=== PATIENT | female | born 1980 | race Caucasian/White ===

== ENCOUNTER → 2016-04-03 | Outpatient (CLI) | payer BC ==
[~2016-04-03] MED LIST: IBP600T1 PO; PREN1TAB39 PO
--- OUTSIDE RECORDS SUMMARY | 2016-04-03 10:19 | XMS REPORT | Continuity of Care Document ---
Author Author [facility] Address Unknown Phone Unavailable Allergies Active Description Code Type Severity Reaction Onset Reported/Identified Relationship to Patient Clinical Status Yes Ceftin Drug Allergy 03/05/2012 Yes Ceftin Drug Allergy N/A N/A 03/05/2012 Medications Problems Date Dx Coded Attending Type Code Diagnosis Diagnosed By 03/05/2012 DAPHNIE RUIZ APRN A 461.9 SINUSITIS ACUTE 03/05/2012 SHERRY RUIZ APRNYL A 784.0 HEADACHE 03/05/2012 SHERRY RUIZ APRNYL A 461.9 SINUSITIS ACUTE 03/05/2012 SHERRY RUIZ APRNYL A 784.0 HEADACHE 01/07/2013 SHERRY RUIZ APRNYL A 381.81 EUSTACHIAN TUBE DYSFUNCTION 01/07/2013 SARA BASSETT DAPHNIE A 461.0 SINUSITIS, ACUTE MAXILLARY Procedures Results Encounters ACCT No. Visit Date/Time Discharge Status Pt. Type Provider Facility Loc./Unit Complaint [id number] 01/07/2013 11:19:00 01/07/2013 23: 59:59 CLS Outpatient DAPHNIE RUIZ APRN [id number] 03/05/2012 14:43:08 03/05/2012 23: 59:59 CLS Outpatient DAPHNIE RUIZ APRN
--- NOTE | 2016-04-03 14:39 | Diagnostic Imaging Report ---
INDICATION: Dysfunctional uterine bleeding. TECHNIQUE: Multiple real-time grayscale images were obtained over the pelvis in various projections both transabdominally and endovaginally. FINDINGS: The uterus measures 8.5 x 5.4 x 4.7 cm. Endometrial thickness is 0.5 cm. There are no discrete myometrial or endometrial masses. Both ovaries are normal in size and morphology and demonstrate normal blood flow. There are no adnexal masses. There is no free pelvic fluid. IMPRESSION: Unremarkable pelvic ultrasound. Dictated by: Dictated on workstation # [id number]
== END ==
LOC: RAD 10:16
PROVIDERS: ATTEND Nurse Practitioner
DX: N93.8 Other specified abnormal uterine and vaginal bleeding (principal)
CPT/HCPCS: 76830; 76856

== ENCOUNTER 2018-04-15 19:17 | Emergency (ER) | payer BC ==
[~2018-04-15] VITALS: Ht 162.6 cm; Wt 77.1 kg
--- OUTSIDE RECORDS SUMMARY | 2018-04-15 19:23 | XMS REPORT | Continuity of Care Document ---
Author Author [facility] Address Unknown Phone Unavailable Allergies Active Description Code Type Severity Reaction Onset Reported/Identified Relationship to Patient Clinical Status Yes Ceftin Drug Allergy 03/05/2012 Yes Ceftin Drug Allergy N/A N/A 03/05/2012 Medications There is no data. 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 Results There is no data. Encounters ACCT No. Visit Date/Time Discharge Status Pt. Type Provider Facility Loc./Unit Complaint [id number] 01/07/2013 11:19:00 01/07/2013 23:59:59 CLS Outpatient DAPHNIE RUIZ APRN [id number] 03/05/2012 14:43:08 03/05/2012 23:59:59 CLS Outpatient DAPHNIE RUIZ APRN
--- NOTE | 2018-04-15 19:47 | ED Upper Extremity ---
General Chief Complaint: Upper Extremity Stated Complaint: CUT LEFT INDEX FINGER Source: patient Exam Limitations: no limitations History of Present Illness Date Seen by Provider: Apr 15, 2018 Time Seen by Provider: 19:30 Initial Comments 37-year-old female who presents to the emergency room with complaints of lacerations to her left index finger. She reports that she was cleaning a emulsion gas blender when she accidentally turned on. She has 3 superficial lacerations to the distal tip of her left index finger 0.5 cm in length. Her nail is intact. See images for location. 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 Onset: just prior to arrival Pain/Injury Location: left 2nd finger Allergies and Home Medications Allergies Coded Allergies: cefuroxime axetil (Verified Allergy, Unknown, Hives, 07/12/11) Home Medications Ibuprofen 600 Mg Tablet, 1 EACH PO Q6H PRN, (Reported) NEEDED FOR CRAMPING/PAIN Vits W-Ca,Fe,Fa(<1MG) 1 Each Tablet, 1 EACH PO DAILY, (Reported) Patient Home Medication List Home Medication List Reviewed: Yes Review of Systems Constitutional: no symptoms reported, see HPI Skin: see HPI, other (Laceration left index) All Other Systems Reviewed Negative Unless Noted: Yes Past Jlqpmlw-Natsxv-Llmcjd Hx Past Med/Social Hx: Reviewed Nursing Past Med/Soc Hx Patient Social History Recent Foreign Travel: No Contact w/Someone Who Travel: No Recent Hopitalizations: Yes (Tubal 2005, childbirth 2004) Past Medical History Surgeries: No (ectopic ) Respiratory: No Cardiac: Yes Neurological: Yes Reproductive Disorders: No Gastrointestinal: No Musculoskeletal: No Endocrine: No Psychosocial: Yes Blood Disorders: No Family Medical History Reviewed Nursing Family Hx Physical Exam Vital Signs Vital Signs - First Documented 04/15/18 19:27 Temp 98.2 Pulse 70 Resp 20 B/P (MAP) 130/84 (99) Pulse Ox 100 O2 Delivery Room Air Capillary Refill : Height, Weight, BMI Height: '" Weight: lbs. oz. kg; BMI Method: General Appearance: WD/WN, no apparent distress Cardiovascular: normal peripheral pulses, regular rate, rhythm, no edema, no gallop, no JVD, no murmur Respiratory: chest non-tender, lungs clear, normal breath sounds, no respiratory distress, no accessory muscle use Hand: Left (Second finger laceration to the distal tip. See images) Neurologic/Tendon: normal sensation, normal motor functions, normal tendon functions, no evidence tendon injury Neurologic/Psychiatric: alert, normal mood/affect, oriented x 3 Skin: normal color, warm/dry Procedures/Interventions Wound Location: Upper Extremities Other Wound Location Left second finger distal tip Wound Length (cm): 0.5 Wound's Depth, Shape: superficial Irrigated w/ Saline (ccs): 200 Betadine Prep?: Yes (Betasept) Other Closure Supply: Wound Adhesive Progress The wound was cleaned and irrigated with normal saline and Betasept. Finger tourniquet was applied to control bleeding and the wound was approximated and closed with wound adhesive. Finger tourniquet was removed. Patient tolerated procedure well. Departure Impression Primary Impression: Laceration Disposition: 01 HOME, SELF-CARE Condition: Stable/Unchanged Departure-Patient Inst. Decision time for Depature: 19:46 Referrals: CATHLEEN SEXTON MD (PCP/Family) Primary Care Physician Patient Instructions: Laceration Repair With Glue (DC) Add. Discharge Instructions: Let the glue fall off on its own. Avoid using soaps, lotions, ointments directly to the glue as this will cause it to detach too soon. Watch for signs of infection such as increased redness, swelling, drainage, pain. May use ibuprofen and Tylenol as directed by the bottle for pain relief. Follow-up with your primary care provider as needed. Return back to the emergency room for worsening symptoms or concerns as needed. All discharge instructions reviewed with patient and/or family. Voiced understanding. Images Extremities-Upper 1 - Laceration 2 - Laceration 3 - Laceration DELMY SOUTH Apr 15, 2018 19:47
[2018-04-15 20:10] VITALS: BP 130/93
== END 2018-04-15 20:12 | disposition home or self-care (01) ==
LOC: EDUNIT# 19:17 → ER 19:19
DX: S61.211A Laceration without foreign body of left index finger without damage to nail, initial encounter (principal); Z88.8 Allergy status to other drugs, medicaments and biological substances; W26.8XXA Contact with other sharp object(s), not elsewhere classified, initial encounter

== ENCOUNTER → 2021-07-15 | Outpatient (CLI) | payer BC | LOC: CARD 09:30 | PROVIDERS: ATTEND Internal Medicine Cardiovascular Disease | DX: I35.8 Other nonrheumatic aortic valve disorders (principal) | CPT/HCPCS: 93306 ==

== ENCOUNTER → 2021-08-17 | Outpatient (CLI) | payer BC ==
--- NOTE | 2021-08-17 13:25 | Diagnostic Imaging Report ---
INDICATION: Routine screening. COMPARISON: No prior mammograms are available for comparison. This is a baseline study. TECHNIQUE: 2D and 3D bilateral screening mammography was performed with CAD. FINDINGS: Both breasts are heterogeneously dense, limiting the sensitivity of mammography. There is a circumscribed nodule in the upper outer right breast at posterior depth. This is approximately 10 cm from the nipple. No other masses are identified. No malignant-appearing microcalcifications are seen. The axillae are unremarkable. IMPRESSION: Circumscribed nodule in the upper outer right breast at posterior depth. Further evaluation with ultrasound is recommended. ACR BI-RADS Category 0: Incomplete. (Needs additional imaging evaluation). Result letter will be mailed to the patient. Note: At least 10% of breast cancer is not imaged by mammography. Dictated by: Dictated on workstation # [id number]
== END ==
LOC: RAD 11:30
PROVIDERS: ATTEND Surgery
DX: Z12.31 Encounter for screening mammogram for malignant neoplasm of breast (principal); N63.11 Unspecified lump in the right breast, upper outer quadrant
CPT/HCPCS: 77063; 77067

== ENCOUNTER → 2021-08-25 | Outpatient (CLI) | payer BC ==
--- NOTE | 2021-08-25 13:48 | Diagnostic Imaging Report ---
INDICATION: Right breast density. CORRELATION is made with the screening mammogram from 08/17/2021. Sonographic interrogation of the outer right breast was performed. There is a circumscribed but macrolobulated solid nodule at the 9:00 location of the right breast 8 to 9 cm from the nipple measuring 8 mm x 3 mm x 5 mm. This likely accounts for the mammographic density. Imaging appearance is most consistent with a fibroadenoma. There appears to be a slightly prominent duct at the 10:00 location 8 to 9 cm from the nipple. No other masses are seen. IMPRESSION: BI-RADS Category 2 Benign-appearing nodule at the 9:00 location, right breast, 8 to 9 cm from the nipple, corresponding with the mammographic density. 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 Patient may return to routine annual screening mammography. ACR BI-RADS Category 2: Benign findings. Result letter will be mailed to the patient. Note: At least 10% of breast cancer is not imaged by mammography. Dictated by: Dictated on workstation # [id number]
== END ==
LOC: RAD 12:45
PROVIDERS: ATTEND Surgery
DX: N63.10 Unspecified lump in the right breast, unspecified quadrant (principal)

== ENCOUNTER → 2022-09-12 | Outpatient (CLI) | payer BC ==
--- NOTE | 2022-09-12 15:46 | Diagnostic Imaging Report ---
INDICATION: Routine screening. COMPARISON: 08/17/2021. TECHNIQUE: 2D and 3D bilateral screening mammography was performed with CAD. FINDINGS: Both breasts are heterogeneously dense, limiting the sensitivity of mammography. The parenchymal pattern is stable. No mass or malignant-appearing microcalcifications are seen. The axillae are unremarkable. IMPRESSION: No mammographic features suspicious for malignancy are identified. ACR BI-RADS Category 1: Negative. Result letter will be mailed to the patient. Note: At least 10% of breast cancer is not imaged by mammography. Dictated by: Dictated on workstation # [id number]
== END ==
LOC: RAD 12:33
PROVIDERS: ATTEND Nurse Practitioner
DX: Z12.31 Encounter for screening mammogram for malignant neoplasm of breast (principal)
CPT/HCPCS: 77063; 77067

== ENCOUNTER 2022-10-28 23:17 | Inpatient (IN) | payer BC ==
[~2022-10-28] VITALS: Ht 162.6 cm; Wt 71.7 kg
[2022-10-29] VITALS (10 sets, daily range): BP systolic 108–131; BP diastolic 58–72
[2022-10-29] MEDS ORDERED: morphine INJ 4 MG/ML 1 ML (VIAL/SYRINGE) IVP PRN (00:45)
[2022-10-29] MEDS ORDERED: ONDANSETRON INJECTION 4 MG/2 ML (SDV) IVP PRN ×2 (00:45→15:00)
[2022-10-29] MEDS ORDERED: LACTATED RINGERS 1,000 ML 1,000 ML IV ONE (00:46)
[2022-10-29] MEDS: LACTATED RINGERS 1,000 ML 1,000 ML IV SCH ×3 (00:48→14:33)
[2022-10-29] MEDS ORDERED: PARO10TA3 PO (00:53)
[2022-10-29] MEDS ORDERED: PANTOPRAZOLE INJECTION 40 MG VIAL IV SCH (01:00)
--- NOTE | 2022-10-29 10:36 | Consultation - Surgery ---
MACY RODRIGUEZ 10/29/22 1036: History of Present Illness History of Present Illness Patient Consulted On(tony/time) 10/29/22 10:31 Date Seen by Provider: Oct 29, 2022 Time Seen by Provider: 10:31 History of Present Illness Pt says yesterday morning she got some intense pain that she thought was her bladder, and then it radiated to her back. She then went to the urgent care, said the pain subsided, then went home. Pt states then by the evening, she got some tight and crampy abd pain, had a fever of 99, same pain radiating in the lower back. Pt says pain was in her right lower abd but whole stomach is crampy, tight, and achy. Pt then had a CT last night at [facility] ER that showed 8.5 mm upper size of normal, mild mucosal enhancement, could be early appendicitis. Pt states the last time she ate or drank was 11:30 last night. Pt says right now the pain is a 5-6/10, uncomfortable, crampy, in RLQ, periumbilical, and in her back. Pt says pain worsens when she stands up. Pt says she has alpha-gal syndrome. Allergies and Home Medications Allergies Coded Allergies: cefuroxime axetil (Verified Allergy, Unknown, Hives, 07/12/11) Patient Home Medication List Paroxetine HCl (Paroxetine HCl) 10 Mg Tablet, 5 MG PO DAILY, (Reported) Entered as Reported by: THONY JOSEPH on 10/29/22 0053 Last Action: Reviewed Discontinued Medications Ibuprofen (Motrin Tablet) 600 Mg Tablet, 1 EACH PO Q6H PRN, (Reported) Discontinued Reason: No Longer Taking Entered as Reported by: SHEYLA BRUCE on 07/14/11 1028 Last Action: Discontinued Vits W-Ca,Fe,Fa(<1MG) () 1 Each Tablet, 1 EACH PO DAILY, (Reported) Discontinued Reason: No Longer Taking Entered as Reported by: HILL CALDERON on 07/12/11 1729 Last Action: Discontinued Past Jdjquqn-Qwwudg-Rrrygx Hx Patient Social History Smoking Status: Never a Smoker Recent Hopitalizations: Yes (Tubal 2005, childbirth 2004, childbirth 2011) Alcohol Use?: No Have you traveled recently?: No Surgeries History of Surgeries: No (just ectopic , and EGD July 24 of this year) Respiratory History of Respiratory Disorde: No Cardiovascular History of Cardiac Disorders: Yes (heart palpitations upon eating mammal (pt says she has alpha-gal syndrome)) Neurological History of Neurological Disord: Yes Neurological Disorders: Neuropathy (in feet and hands) Reproductive System Hx Reproductive Disorders: No Genitourinary History of Genitourinary Disor: Yes Genitourinary Disorders: Bladder Infection Gastrointestinal History of Gastrointestinal Di: No Musculoskeletal History of Musculoskeletal Dis: No Endocrine History of Endocrine Disorders: No HEENT History of HEENT Disorders: No Cancer History of Cancer: No Psychosocial History of Psychiatric Problem: Yes Behavioral Health Disorders: Anxiety (in the past) Integumentary History of Skin or Integumenta: No Blood Transfusions History of Blood Disorders: No Family Medical History Significant Family History: Heart Disease (grandparents, dad valve replacement and stents in carotid arteries), Cancer (grandpa, leukemia), Diabetes (mom T2DM, uncle) Review of Systems-General Constitutional: No chills; fever (mild fever last night, pt reports to be 99) EENTM: vision loss (worse in last few years); No blurred vision Respiratory: No cough, No short of breath Cardiovascular: No chest pain, No palpitations Gastrointestinal: RLQ, abdominal pain, nausea (yesterday but not today); No vomiting Genitourinary: No dysuria; frequency (increased, urinalysis at urgent care was clean according to pt); No hematuria Musculoskeletal: No muscle stiffness; muscle cramps (in abdomen) Skin: No change in color, No lesions Psychiatric/Neurological: Denies Anxiety, Denies Depressed Physical Exam-General Problems Physical Exam Vital Signs Vital Signs - First Documented 10/29/22 10/29/22 00:20 00:23 Temp 36.6 Pulse 81 Resp 20 B/P (MAP) 113/67 (82) Pulse Ox 100 O2 Delivery Room Air Capillary Refill : General Appearance: mild distress Neck: non-tender Respiratory: lungs clear, normal breath sounds, no respiratory distress, no accessory muscle use Cardiovascular: regular rate, rhythm, no JVD, no murmur Peripheral Pulses: 2+ Carotid (R), 2+ Carotid (L), 2+ Dorsalis Pedis (R), 2+ Left Dors-Pedis (L), 2+ Radial Pulses (R), 2+ Radial Pulses (L) Gastrointestinal: soft, no pulsatile mass; No distended, No guarding (voluntary or involuntary); tenderness (very tender in epigastric area and RLQ, mildly tender in LLQ, no tenderness in LUQ) Neurologic/Psychiatric: alert, oriented x 3 Skin: normal color, warm/dry Assessment/Plan Assessment/Plan Assessment/Plan Acute appendicitis - laparoscopic appendectomy Alpha-gal syndrome - continue dietary restrictions TIFFANY CLARKE DO 10/29/22 1255: History of Present Illness History of Present Illness Time Seen by Provider: 12:29 History of Present Illness Surgery asked to admit regarding acute appendicitis. Pt when seen this afternoon stated her pain is actually worse than yesterday. She denies nausea or vomiting today. Pain is radiating to back. Allergies and Home Medications Allergies Coded Allergies: cefuroxime axetil (Verified Allergy, Unknown, Hives, 07/12/11) Patient Home Medication List Home Medication List Reviewed: Yes Paroxetine HCl (Paroxetine HCl) 10 Mg Tablet, 5 MG PO DAILY, (Reported) Entered as Reported by: THONY JOSEPH on 10/29/22 0053 Last Action: Reviewed Discontinued Medications Ibuprofen (Motrin Tablet) 600 Mg Tablet, 1 EACH PO Q6H PRN, (Reported) Discontinued Reason: No Longer Taking Entered as Reported by: SHEYLA BRUCE on 07/14/11 1028 Last Action: Discontinued Vits W-Ca,Fe,Fa(<1MG) () 1 Each Tablet, 1 EACH PO DAILY, (Reported) Discontinued Reason: No Longer Taking Entered as Reported by: HILL CALDERON on 07/12/11 1729 Last Action: Discontinued Past Ponsfpu-Gioisz-Iwzuke Hx Patient Social History Smoking Status: Never a Smoker Recent Hopitalizations: Yes (Tubal 2005, childbirth 2004, childbirth 2011) Alcohol Use?: Yes Have you traveled recently?: No Surgeries History of Surgeries: No (just ectopic , and EGD July 24 of this year) Respiratory History of Respiratory Disorde: No Cardiovascular History of Cardiac Disorders: Yes (heart palpitations upon eating meat (pt says she has alpha-gal syndrome)) Neurological History of Neurological Disord: Yes Neurological Disorders: Neuropathy (in feet and hands) Genitourinary History of Genitourinary Disor: Yes Genitourinary Disorders: Bladder Infection Gastrointestinal History of Gastrointestinal Di: Yes (abdominal pain when she eats meat) Musculoskeletal History of Musculoskeletal Dis: No Endocrine History of Endocrine Disorders: No HEENT History of HEENT Disorders: No Cancer History of Cancer: No Psychosocial History of Psychiatric Problem: Yes Behavioral Health Disorders: Anxiety (in the past) Integumentary History of Skin or Integumenta: No Family Medical History Significant Family History: Heart Disease (grandparents, dad valve replacement and stents in carotid arteries), Cancer (grandpa, leukemia), Diabetes (mom T2DM, uncle) Review of Systems-General Constitutional: No chills; fever (mild fever last night, pt reports to be 99) EENTM: vision loss (worse in last few years); No blurred vision Respiratory: No cough, No short of breath Cardiovascular: No chest pain, No palpitations Gastrointestinal: RLQ, abdominal pain, nausea (yesterday but not today); No vomiting Genitourinary: No dysuria; frequency (increased, urinalysis at urgent care was clean according to pt); No hematuria Musculoskeletal: No muscle stiffness; muscle cramps (in abdomen) Skin: No change in color, No lesions Psychiatric/Neurological: Denies Anxiety, Denies Depressed Physical Exam-General Problems Physical Exam General Appearance: WD/WN, mild distress Eyes: Bilateral Eye PERRL, Bilateral Eye EOMI HEENT: pharynx normal; No scleral icterus (R), No scleral icterus (L) Neck: non-tender, supple Respiratory: lungs clear, normal breath sounds, no respiratory distress, no accessory muscle use Cardiovascular: regular rate, rhythm, no murmur Gastrointestinal: soft, no organomegaly, no pulsatile mass; No distended, No guarding (voluntary or involuntary); tenderness (very tender in epigastric area and RLQ, mildly tender in LLQ, no tenderness in LUQ) Back: no CVA tenderness, no vertebral tenderness Extremities: no pedal edema, no calf tenderness, normal capillary refill 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 All questions answered to her satisfaction. Will get consent, she is on IV fluids, pain meds and anti-emetics as needed. Plan to go to OR within the hour. I reviewed all notes, labs and went over films from [facility]. Supervisory-Addendum Brief Verification & Attestation Participated in pt care: history, MDM, physical Personally performed: exam, history, MDM, supervision of care Care discussed with: Medical Student Procedures: n/a Verification and Attestation of Medical Student E/M Service A medical student performed and documented this service. I then reviewed and verified all information documented by the medical student and made modifications to such information, when appropriate. I personally performed a physical exam, medical decision making and then discussed any differences between the notes and made revisions as necessary to create one note. Tiffany Clarke , 10/29/22 , 12:55 MACY RODRIGUEZ Oct 29, 2022 10:36 TIFFANY CLARKE DO Oct 29, 2022 12:55
[2022-10-29] MEDS ORDERED: KETOROLAC INJ 30 MG/ML VIAL IVP ONE (11:45)
[2022-10-29] MEDS ORDERED: LIDOCAINE/EPI 1%-1:200,000 (XYLOCAINE) 30 ML VIAL ONE (13:13)
[2022-10-29] MEDS ORDERED: MIDAZOLAM INJ 2 MG/2 ML VIAL ONE (13:24)
[2022-10-29] MEDS ORDERED: fentaNYL INJECTION 100 MCG/2 ML VIAL ONE (13:24)
[2022-10-29] MEDS ORDERED: LACTATED RINGERS 1,000 ML 1,000 ML IV PRN (13:30)
[2022-10-29] MEDS ORDERED: CLINDAMYCIN 600 MG/50 ML IVPB 50 ML IV ONE (13:47)
[2022-10-29] MEDS ORDERED: LIDOCAINE PF 2% 5 ML VIAL ONE (13:50)
[2022-10-29] MEDS ORDERED: ROCURONIUM 50 MG/5 ML VIAL IV ONE (13:50)
[2022-10-29] MEDS ORDERED: proPOfol INJECTION 200 MG/20 ML VIAL IV ONE (13:50)
[2022-10-29] MEDS ORDERED: dexAMETHasone INJ 10 MG/ML 1 ML VIAL ONE (13:50)
[2022-10-29] MEDS ORDERED: ONDANSETRON INJECTION 4 MG/2 ML (SDV) ONE (13:50)
[2022-10-29] MEDS ORDERED: KETOROLAC INJ 30 MG/ML VIAL ONE (14:10)
[2022-10-29] MEDS ORDERED: NEOSTIGMINE 1 MG/1ML 10 ML VIAL ONE (14:14)
[2022-10-29] MEDS ORDERED: GLYCOPYRROLATE INJ 0.2 MG/ML 2 ML VIAL ONE (14:14)
[2022-10-29] MEDS ORDERED: ACHD5005 PO (14:30)
--- NOTE | 2022-10-29 14:32 | Discharge Inst-Surgical ---
Discharge Inst-Surgical Depart Medication/Instructions New, Converted or Re-Newed RX: Transmitted to Pharmacy Patient Instructions Follow up Appt: Make appointment for 1 week. [phone] Instructions: No lifting greater than 20 pounds. No strenuous activity. May shower in 24 hours, no tub bath or soaking. Use incentive spirometer at home as directed. No Smoking Skin/Wound Care: May remove bandages in am. You need to leave the Dermabond on incision it will fall off on it's own. Symptoms to Report: Appetite Changes, Extremity Discoloration, Numbness/Tingling, Swelling Increased, Bleeding Excessive, Eyesight Changes, Pain Increased, Urine Color Change, Constipation(Persistent), Fever over 101 degree F, Pain/Pressure in chest, Urinating Difficulty, Cough Up/Vomit Blood, Heart Beat Irreg/Pounding, Pain/Pressure in jaw, Cramps in feet or legs, Lightheadedness, Pain/Pressure in shoulder, Diarrhea(Persistent), Memory Changes Suddenly, Questions/Concerns, Weight gain consecutive days, Dizziness/Fainting, Nausea/Vomiting, Shortness of Breath, Weight gain over 2 pounds If questions or concerns contact your physician Or seek help at emergency department. Activity Activity as Tolerated: Yes Activity Instructions: Avoid Stress to Incision Driving Instructions: No Driving/Refer to Dr. Milner Discharge Diet: No Restrictions Diet After 24 Hours: Clear Liquid if Nauseous If Any Problems/Questions/Issu: Contact Your Physician, Go to Emergency Room Skin/Wound Care Infection Signs and Symptoms: Increased Redness, Foul Odor of Wound, Increased Drainage, Skin Itchy or Has a Rash, Increased Swelling, Temperature Above 101 F Wound Care Comment: heating pad to shoulder or neck tonight for pain Bathing Instructions: Shower Stitches/[place]/Dermabond Dis: Dermabond Ice Pack: Ice On and Off Site TIFFANY CLARKE DO Oct 29, 2022 14:32
--- NOTE | 2022-10-29 14:36 | Progress Note-Post Operative ---
Post-Operative Progess Note Surgeon (s)/Account Development Representative (s) Surgeon TIFFANY CLARKE DO Account Development Representative: BAO Moreland Pre-Operative Diagnosis Acute appy Post-Operative Diagnosis same Procedure & Operative Findings Date of Procedure 10/29/22 Procedure Performed/Findings PROCEDURE: Laparoscopic appendectomy. COMPLICATIONS: None. INDICATIONS: The patient is a 42 year old female who has been having right lower quadrant abdominal pain. Patient's exam consistent with appendicitis. I discussed risk and benefits of laparoscopic appendectomy and all indicated procedures with the possibility being a normal appendix. The patient understands the risks and benefits and wishes to proceed. Consent was signed on the chart. DESCRIPTION OF PROCEDURE: The patient was taken to the operating suite, prepped and draped in a sterile fashion. Timeout was performed. Local anesthetic was infiltrated just above the umbilicus and a #11 blade scalpel was used to make a skin incision. Cautery was used to dissect down to the fascia and scored. Kochers were used to grasp and elevate it and the abdomen was then entered. An 0 Vicryl was placed in a [id number]-efovy fashion for closure at the end of the case. The balloon trocar was inserted into the abdomen and pneumoperitoneum was achieved. Under direct visualization of the laparoscope, a 5 mm trocar was placed in the suprapubic region and a 5 mm trocar was placed in the left lower quadrant. Appendix was located, thickened and erythematous it had not perforated. The mesoappendix was then divided in a stepwise fashion using the Ligasure; clamping, coagulating and then firing. Going all the way to the base of the appendix. Once at the base an Endo-BENITA 2.5 stapler was then fired across the base of the appendix. It was then placed in an Endobag and removed through the 12 mm trocar site. The abdomen was then irrigated and suctioned. No other pathology noted. The abdomen was then desufflated and the trocars were removed. The 0 Vicryl placed at the beginning of the case was then tied closing the 12 mm fascial defect. The skin was then closed using 4-0 Monocryl in a subcuticular fashion. The abdomen was then washed and dried and Skin Affix was placed over the incisions. The patient tolerated the procedure well without any complications and was taken to the recovery room in stable condition. Anesthesia Type GET Estimated Blood Loss Estimated blood loss (mL): scant Specimens/Packing Specimens Removed appendix TIFFANY CLARKE DO Oct 29, 2022 14:36
[2022-10-29] MEDS ORDERED: SEVOFLURANE (ULTANE) 15 ML INHAL SOLN ONE (14:46)
--- NOTE | 2022-10-29 14:49 | Anesthesia-General Post-Op ---
General Patient Condition Mental Status/LOC: Same as Preop Cardiovascular: Satisfactory Nausea/Vomiting: Absent Respiratory: Satisfactory Pain: Controlled Complications: Absent Post Op Complications Complications None Follow Up Care/Instructions Patient Instructions None needed. Anesthesia/Patient Condition Patient Condition Patient is doing well, no complaints, stable vital signs, no apparent adverse anesthesia problems. No complications reported per nursing. MARKIE PENDLETON CRNA Oct 29, 2022 14:49
[2022-10-29] MEDS ORDERED: PROMETHAZINE INJ 25 MG/ML VIAL IVP ONE (15:00)
[2022-10-29] MEDS ORDERED: morphine INJ 10 MG/ML 1ML (SYR OR VIAL) IVP ONE (15:00)
== END 2022-10-29 17:00 | disposition home or self-care (01) | DRG 343 ==
LOC: 4TH 10-29 00:15
PROVIDERS: ADMIT Surgery; ATTEND Surgery
PROC: 0DTJ4ZZ Resection of Appendix, Percutaneous Endoscopic Approach (ICD-10-PCS; principal; 2022-10-29 13:33)
DX: K35.80 Unspecified acute appendicitis (principal); G62.9 Polyneuropathy, unspecified; F41.9 Anxiety disorder, unspecified; Z91.014 Allergy to mammalian meats
CPT/HCPCS: 87081; 88304